=== PATIENT | male | born 2000 | race Caucasian/White ===

== ENCOUNTER 2019-04-10 06:08 | Day surgery (SDC) | payer BC, OTHER ==
[~2019-04-10] VITALS: Ht 188 cm; Wt 97.5 kg
--- NOTE | ~2019-04-10 | OP ---
PATIENT NAME: YUDY VILLAFANA MEDICAL RECORD: [id number] :98 LOCATION:[facility] ADMISSION DATE: SURGEON: MARY PASCUAL MD DATE OF OPERATION: 04/10/2019 PREOPERATIVE DIAGNOSIS: Chronic pharyngitis. POSTOPERATIVE DIAGNOSIS: Chronic pharyngitis. PROCEDURE: Tonsillectomy and adenoidectomy. SURGEON: Mary Pascual MD ANESTHESIA: General orotracheal. BLOOD LOSS: 5 cc. SPECIMENS: Right and left tonsil. COMPLICATIONS: None. DISPOSITION: Recovery stable. DESCRIPTION OF PROCEDURE: He was brought to the operating room and placed in supine position, sedated and intubated by anesthesia. The table was turned 90 degrees. Head drape was applied. He was positioned for tonsillectomy. Using a headlight, a Ritesh-Romain mouth gag was carefully inserted and elevated on a towel on his chest. The palate was examined and palpated as normal. A red rubber catheter was placed to the right side of the nose and pharynx was grasped with tonsil clamp to retract the soft palate. Using a mirror, nasopharynx was examined. Suction cautery on a setting of 35 was used to ablate adenoid tissue. There was no significant bleeding. The choanae and eustachian orifices were normal bilaterally. The red rubber catheter was let down and removed. The right tonsil was grasped at the superior pole with a straight Allis clamp. Spatula tip cautery on a setting of 9 was used to dissect out the tonsil along its capsule, preserving the anterior and posterior tonsillar pillar. The left tonsil was removed in the same fashion. Then, both sides of the nose were irrigated with saline. The pharynx was suctioned. Tonsillar fossae were agitated. Suction cautery on a setting of 18 was used to control minimal oozing. With the field clean and dry, the Ritesh-Romain mouth gag was let down and removed. He was awakened, extubated, and transported to recovery in good condition. No complications. TRANSINT:[id number] Voice Confirmation ID: [id number] DOCUMENT ID: [id number] MARY PASCUAL MD CC: [id number] DICTATION DATE: 04/10/19 1005 [employer] SAL[employer] MANAGER: 04/10/19 1549 [facility] 04/10/[address] [facility] [address] [place] [address]
[2019-04-10 07:05] VITALS: BP 108/89; Ht 188 cm; Wt 97.5 kg
--- NOTE | 2019-04-10 09:15 | HP ---
PATIENT: YUDY VILLAFANA MEDICAL RECORD: [id number] ACCOUNT: [id number] LOCATION:[facility] : 98 ADMISSION DATE: 04/10/19 PCP: MARY ISAAC MD HISTORY AND PHYSICAL EXAMINATION HISTORY OF PRESENT ILLNESS: Yudy is a 18-year-old. He has been having persistent problems with recurrent pharyngitis. He is being admitted for tonsillectomy and adenoidectomy. PAST MEDICAL HISTORY: Otherwise negative. PAST SURGICAL HISTORY: [place]ann[place] teeth extraction. CURRENT MEDICATIONS: None. ALLERGIES: No known drug allergies. PHYSICAL EXAMINATION: GENERAL: He is healthy-appearing, developmentally normal. FACE: Normal, symmetric, no lesions. EYES: Sclerae and conjunctivae are normal. EARS: Canals and TMs are normal. NOSE: No mass, polyps or drainage. ORAL CAVITY AND OROPHARYNX: A 4+ tonsils. NECK: No masses, no adenopathy. CHEST: Clear. CARDIOVASCULAR: Regular rate and rhythm, no murmur. EXTREMITIES: Normal. IMPRESSION: Chronic pharyngitis. PLAN: Tonsillectomy and adenoidectomy. TRANSINT:[id number] Voice Confirmation ID: [id number] DOCUMENT ID: [id number] MARY ISAAC MD at 0915 CC: [id number] DICTATION DATE: 04/07/19 1045 ELECTRICAL AND INSTRUMENT TECHNICIAN: 04/07/19 1141 [facility] [address] [place] [address]
--- NOTE | 2019-04-10 11:54 | NUR ---
DC INSTRUCTIONS GIVEN TO PT/FAMILY. STATE UNDERSTANDING. DC'D IV CATH FULLY INTACT.
--- NOTE | 2019-04-10 11:57 | NUR ---
PT LEFT UNIT VIA WC AT 1157
== END 2019-04-10 11:57 | disposition home or self-care (01) ==
LOC: D.OPS 06:08 → D.PAN 08:15 → D.OPS 08:45
PROVIDERS: ATTEND Otolaryngology
DX: J31.2 Chronic pharyngitis (principal)